=== PATIENT | female | born 1985 | race Caucasian/White ===

== ENCOUNTER 2017-03-06 18:10 | Emergency (ER) | payer MEDICAID, OTHER ==
[~2017-03-06] VITALS: Ht 152.4 cm; Wt 64.4 kg
[2017-03-06 18:45] VITALS: BP 110/68
[2017-03-06 19:19] LABS: BASOPHILS # (AUTO) 0.1 K/uL (0.00-0.22); BASOPHILS % (AUTO) 0.8 % (0.0-2.0); EOSINOPHILS # (AUTO) 0.2 K/uL (0-0.4); EOSINOPHILS % (AUTO) 1.7 % (0.0-4.0); HEMATOCRIT 44.8 % (36-48); LYMPHOCYTES # (AUTO) 0.9 K/uL (2.5-16.5); LYMPHOCYTES % (AUTO) 8.1 % (20.5-51.1); MEAN CORPUSCULAR HEMOGLOBIN 31 pg (27-31); MEAN CORPUSCULAR HGB CONC 33 g/dL (33-37); MEAN CORPUSCULAR VOLUME 92 fL (80-94); MONOCYTES # (AUTO) 0.2 K/uL (0.8-1.0); MONOCYTES % (AUTO) 1.5 % (1.7-9.3); NEUTROPHILS # (AUTO) 9.3 K/uL (1.8-7.7); NEUTROPHILS % (AUTO) 87.9 % (42.2-75.2); PLATELET COUNT (AUTO) 303 K/uL (140-450); RED BLOOD CELL COUNT(AUTO) 4.89 MIL/uL (4.20-5.40); RED CELL DISTRIBUTION WIDTH 11.7 % (11.6-13.7); WHITE BLOOD COUNT (AUTO) 10.7 K/uL (4.8-10.8)
--- NOTE | 2017-03-06 19:29 | NUR ---
PT TAKEN TO BED 4
--- NOTE | 2017-03-06 19:30 | NUR ---
PATIENT PRESENTS TO ED WITH c/o nausea and dizziness . PT SKIN IS PINK/WARM/DRY; AAOX4 WITH EVEN AND STEADY GAIT; LUNGS CLEAR BL; HR EVEN AND REGULAR; PT DENIES ANY FEVER, CP, SOB, OR COUGH AT THIS TIME; PATIENT STATES PAIN OF 0/10 AT THIS TIME; VSS; PATIENT POSITIONED FOR COMFORT; HOB ELEVATED; BEDRAILS UP X2; BED DOWN. ER MD MADE AWARE OF PT STATUS.
[2017-03-06 19:36] LABS: ALBUMIN 4.3 g/dL (3.4-5.0); ANION GAP 13.3 (8-16); CARBON DIOXIDE 27.4 mmol/L (21-32); CREATININE 0.8 mg/dL (0.6-1.3); POTASSIUM 3.7 mmol/L (3.5-5.1); TOTAL BILIRUBIN 0.5 mg/dL (0.0-1.0)
[2017-03-06] MEDS ORDERED: ONDANSETRON 4 MG/2 ML VIAL IVP ONE (19:45)
[2017-03-06] MEDS ORDERED: MECLIZINE 25 MG TAB PO ONE (19:45)
[2017-03-06] MEDS ORDERED: NACL 0.9% 1,000 ML IV ONE (19:45)
[2017-03-06 20:32] LABS: BILIRUBIN,URINE 1+ (NEGATIVE); BLOOD, URINE 2+ (NEGATIVE); COLOR,URINE YELLOW (YELLOW); LEUKOCYTE ESTERASE ,URINE NEGATIVE (NEGATIVE); NITRITE, URINE NEGATIVE (NEGATIVE); UGLUCOSE NEGATIVE (NEGATIVE)
[2017-03-06 20:33] LABS: APPEARANCE,URINE CLOUDY (CLEAR)
[2017-03-06 20:46] LABS: RBC,URINE NONE SEEN /HPF (0-5); URINE AMORPHOUS URATE 3+ /HPF (None Seen); WBC,URINE NONE SEEN /HPF (0-5)
[2017-03-06 21:00] VITALS: BP 97/59
--- NOTE | 2017-03-06 21:02 | NUR ---
Patient discharged with v/s stable. Written and verbal after care instructions given and explained. Patient alert, oriented and verbalized understanding of instructions. Ambulatory with steady gait. All questions addressed prior to discharge. ID band removed. Patient advised to follow up with PMD. Rx of MECLIZINE AND ZOFRAN given. Patient educated on indication of medication including possible reaction and side effects. Opportunity to ask questions provided and answered.
== END 2017-03-06 21:02 | disposition home or self-care (01) ==
LOC: MED 18:10
DX: R42 Dizziness and giddiness (principal); R11.2 Nausea with vomiting, unspecified; H53.8 Other visual disturbances
CPT/HCPCS: 36415; 80053; 81001; 81025; 85025; 93005; 96361; 96374; 99285; J2405; J7030; J8597